=== PATIENT | female | born 2000 | race Two or more races ===

== ENCOUNTER 2024-06-01 20:38 | Observation (INO) ==
[2024-06-01 21:27] LABS: Albumin Globulin Ratio 1.2 (0.9-2); Albumin Level 4.3 gm/dl (3.4-5.0); BUN Creatinine Ratio 9.5 (10-20); Bilirubin,Total 1.1 mg/dl (0.2-1.0); Calcium 9.4 mg/dl (8.6-10.3); Creatinine Clr Calc Pharmacy 94.8 ml/min; Globulin 3.7 gm/dl (2.5-4.0); Potassium 3.5 mmol/L (3.5-5.1)
[2024-06-01 21:36] LABS: Basophils # (auto) 0.05 K/uL (0.00-0.20); Basophils % (auto) 0.3 %; Eosinophils # (auto) 0.04 K/uL (0.00-0.50); Eosinophils % (auto) 0.2 %; Hematocrit (blood only) 41.8 % (37.0-47.0); Hemoglobin 14.2 g/dl (12.0-16.0); Immature Granulocytes # (auto) 0.09 K/uL (0.01-0.20); Immature Granulocytes % (auto) 0.5 %; Lymphocytes # (auto) 2.15 K/uL (1.20-3.40); Lymphocytes % (auto) 13.1 %; Mean Corpuscular Hemoglobin 27.7 pg (25.0-34.0); Mean Corpuscular Volume 81.5 fL (80.0-100.0); Mean Platelet Volume 9.4 fL (9.4-12.4); Monocytes # (auto) 0.92 K/uL (0.11-0.59); Monocytes % (auto) 5.6 %; Neutrophils # (auto) 13.18 K/uL (1.40-6.50); Neutrophils % (auto) 80.3 %; Platelet Count 252 K/uL (130-400); RDW Coefficient of Variation 12.4 % (11.5-14.5); RDW Standard Deviation 36.6 fL (36.4-46.3); Red Blood Count 5.13 M/uL (4.20-5.40); White Blood Count 16.43 K/ul (4.8-10.8)
[2024-06-01 21:54] LABS: Adenovirus PCR Not Detected (NotDetected); Bordetella parapertussis PCR Not Detected (NotDetected); Bordetella pertussis PCR Not Detected (NotDetected); Chlamydia pneumoniae PCR Not Detected (NotDetected); Coronavirus 229E PCR Not Detected (NotDetected); Coronavirus CoV-2 (COVID19)PCR Not Detected (NotDetected); Coronavirus HKU1 PCR DETECTED (NotDetected); Coronavirus NL63 PCR Not Detected (NotDetected); Coronavirus OC43PCR Not Detected (NotDetected); Human Metapneumovirus PCR Not Detected (NotDetected); Influenza A PCR Not Detected (NotDetected); Influenza B PCR Not Detected (NotDetected); Mycoplasma pneumoniae PCR Not Detected (NotDetected); Parainfluenza Virus 1 PCR Not Detected (NotDetected); Parainfluenza Virus 2 PCR Not Detected (NotDetected); Parainfluenza Virus 3 PCR Not Detected (NotDetected); Parainfluenza Virus 4 PCR Not Detected (NotDetected); Respiratory Syncytial VirusPCR Not Detected (NotDetected); Rhinovirus/Enterovirus PCR Not Detected (NotDetected)
[2024-06-01] MEDS: ACETAMINOPHEN 1,000 MG/100 ML VIAL IV STA (23:08)
[2024-06-01] MEDS: SODIUM CHLORIDE 0.9% 1,000 ML IV ONE (23:08)
[2024-06-01] MEDS: KETOROLAC TROMETHAMINE 15 MG/ML VIAL IV STA (23:09)
[2024-06-01 23:23] LABS: Troponin I High Sensitivity 45.7 pg/ml (0-14)
[2024-06-01 23:25] LABS: D Dimer 1580 ug/L FEU (0-500)
[2024-06-01 23:44] LABS: INR 1.1 (0.9-1.1); Partial Thromboplastin Ratio 1.2; Partial Thromboplastin Time 33 Seconds (21-31); Prothrombin Time 12.2 Seconds (9.0-12.0)
[2024-06-01 23:50] LABS: Magnesium 1.8 mg/dl (1.7-2.4); Uric Acid 3.8 mg/dl (2.6-7.2)
[2024-06-01 23:51] LABS: Procalcitonin 1.74 ng/ml (0-0.5)
[2024-06-01] MEDS: OPTIRAY 320 125ml IV ONE (23:55)
[2024-06-02 00:06] LABS: C Reactive Protein 40.5 mg/dl (0-0.5)
[2024-06-02 00:17] LABS: Lyme Screen Rflx Confirmation Negative (Negative)
[2024-06-02] MEDS: COLCHICINE 0.6 MG TAB PO ONE (00:40)
--- NOTE | 2024-06-02 01:16 | History & Physical Report ---
Date of Service June 02, 2024 Assessment & Plan (1) Coronavirus infection, unspecified: (2) Fever: Plan: 23 y/o female with no PMH here due to fever, general aches, joint pain and rash found with coronavirus Patient with symptoms since , worsening over the weekend Recent travel to [facility] Rash on hand and feet with sore throat- Hand and mouth disease Biofire positive for Coronavirus HKU1 Chest CT: . No major pulmonary embolism. leukocytosis of 16.43 no left shift. ESR elevated 63, CRP 40.50 PT 12.2. PTT 33, INR 1.1. D-dimer elevated at 1580. Hyponatremia of 133. Troponin 45.7 -> pending repeat EKG: sinus tachycardia, no signs of pericarditis Procal 1.74. Blood cultured pending 125 ml IV plasmolyte Tylenol for fever s/p Colchicine 0.6 mg po given continue supportive measures Plan FEN: Normal diet Code status: Full code DNR/DNI DVT ppx: ambulation Dispo: med/surg History of Present Illness Primary Care Provider: [facility] Patient is a 23 y/o female with no PMH here due to fever and general malaise. Patient states symptoms started on with a sore throat. Over the Saturday she started to developed body aches that worsen over the weekend. She refers some runny nose as well. Body aches include headaches, neck and joint pain. she develop rash on her hands and feet. She recently visit family in [facility], she returned on the 17 of this month. She states that went to [facility], where they tested for Covid 19 which was negative. CXR was done as well, which she refers was negative for pneumonia. She was given Doxycycline, which she took only one dose. Denied any cough, ear aches, abdominal pain, nausea, vomiting or diarrhea.Denied any light sensitivities. Denied mosquitoes bites. ED course: Patient found with sinus tachycardia, no fever. Lab remarkable for leukocytosis of 16.43 no left shift. ESR elevated 63, CRP 40.50 PT 12.2. PTT 33, INR 1.1. D-dimer elevated at 1580. Hyponatremia of 133. hypophosphatemia 2.3. Magnesium 1.8. Troponin 45.7. Procal 1.74. Biofire positive for Coronavirus HKU1 PAtient received IV tylenol Colchicine and ketorolac. 1 L of NSS. Allergies Allergy/AdvReac Type Severity Reaction Status Date / Time Penicillins Allergy Rash Verified 06/02/24 00:40 Past Med/Surg History Problem List (Updated 06/02/24 @ 02:51 by Davis Tobar PA-C) Elevated troponin (Acute) Viral illness (Acute) Coronavirus infection (Acute) Myocarditis (Acute) Fever Coronavirus infection, unspecified Social History Smoking Status: Never smoker Second Hand Exposure: No; Do You Dip or Chew Tobacco: No; Tobacco Cessation Education Requested by Patient: No Hx Alcohol Use: Yes Hx Substance Use: No Preferred Language: Lithuanian Communication Ability: Effective [place] Former Machine Operator Required: No Beliefs That Will Affect Care: None Current Living Situation: Alone Other Information That Helps Us Care for You: No Feels Safe at Home: Yes Safety Concerns: Feels Safe At This Time Assistive Devices: None Review of Systems Review of Systems: as per HPI Physical Exam Constitutional: well developed, well nourished and + ill appearing; no acute distress Eyes: PERRL, conjunctivae normal, anicteric sclerae ENMT: Mouth: + oral mucosal abnormality (Small ulcers, erythemathous) Neck: trachea midline, no thyromegaly Respiratory: normal respiratory effort, lungs clear to auscultation Cardiovascular: RRR, no murmur, no edema Gastrointestinal (Abdomen): normal bowel sounds, soft, nontender, no hepatosplenomegaly Skin: Rash on hands and feet Neurologic: Negative Kernig sign, no neck stiffness, no Brudzinski sign: Results & Data Results & Data Vital Signs (Past 12 Hours) Vital Signs Temp Pulse Resp BP Pulse Ox O2 Del Method 06/02/24 01:06 102 H 06/02/24 01:03 106 H 20 06/02/24 01:00 99/73 L 06/02/24 00:30 107/76 06/02/24 00:30 108 H 16 107/76 98 Room Air 06/02/24 00:21 106 H 19 98 06/01/24 23:09 117 H 21 98 06/01/24 23:08 118/76 06/01/24 23:03 121 H 22 97 Room Air 06/01/24 21:33 123 H 21 98 06/01/24 21:21 126 H 25 H 96 06/01/24 21:16 126 H 06/01/24 20:42 36.4 C L 140 H 19 98/74 L 98 Room Air Code Status & VTE Plan VTE Prophylaxis Plan VTE Prophylaxis will be ordered: Yes Supervising Physician Co-Signing Physician Notes Attending addendum: I have physically seen this patient, have supervised the medical residents activities, and agree with the H&P unless as otherwise noted. Assessment and Plan: The patient is a 23-year-old female with no significant past medical history, who had recently traveled to [facility], and presents to the emergency department with fever, generalized malaise, headaches, neck pain, joint pain, rash on hands and feet. She was recently seen at [facility], where she was tested negative for COVID-19 and reportedly had a negative chest x-ray. She was given doxycycline, took 1 dose, she presents to the emergency department and admitted for further assessment #Presumptive viral myocarditis- Troponin 45.7, with BioFire concern positive for coronavirus HKU1 virus- The patient will be admitted to telemetry for serial cardiac enzymes, serial EKG's, cardiac rhythm monitoring and a 2-D echocardiogram with Dopplers. Will also add EBV, CMV, coxsackie and parvovirus To this point Lyme antibody testing negative Anaplasmosis and babesiosis antibodies negative, with peripheral smear negative CTA chest negative for PE or large pericardial effusion Start colchicine 0.6 mg p.o. twice daily and aspirin 81 mg p.o. twice daily IV fluids as noted Viral rash and arthralgias, consistent with syndrome Consult cardiology in the a.m. Resident Activity Tracking Resident Involvement: Resident Care Provided Care Provided: Adult Hospital Medicine
[2024-06-02 01:52] LABS: Phosphorus 2.3 mg/dl (2.5-4.9)
[2024-06-02] MEDS ORDERED: POTASSIUM PHOS 3 MMOL/1 ML INFUSION IV STA (02:15)
--- NOTE | 2024-06-02 02:40 | CT Scan Report ---
EXAM: CT angio chest PE protocol CLINICAL HISTORY: Fever, travel, elevated dimer, PE r/o. TECHNIQUE: Contiguous 3.[address] images of the chest were acquired with administration of intravenous contrast. Coronal and sagittal reconstructions were obtained.118 ml optiray 320 was administered for post contrast images. One of the following dose reduction techniques were utilized for this exam: Automated exposure control, adjustment of the mA and/or kV according to patient size, and use of iterative reconstruction COMPARISON: None. FINDINGS: Lungs: Lungs are clear with no evidence of consolidation, collapse, or focal lesions. Bibasilar likely gravity-dependent atelectasis. No pulmonary consolidation or collapse. No pleural effusion or pleural thickening. Mediastinum: No mediastinal mass or abnormal lymphadenopathy. Normal appearance of the thymus. Heart and Great Vessels: Borderline heart size. No pericardial effusion. Normal caliber and course of the thoracic aorta and other great vessels. No significant atherosclerosis or aneurysm. Normal enhancement of the great vessels post-contrast. Pulmonary Arteries: No evidence of pulmonary embolism. Normal size and course of the pulmonary arteries. Esophagus: Normal course and caliber. No masses or dilatation. Bones: No fractures or lytic/sclerotic lesions. Normal bone density and alignment. No evidence of rib fractures. Chest Wall: No masses or soft tissue abnormalities. Upper Abdomen: No abnormalities noted in the visualized upper abdominal organs. Thyroid: Normal size and morphology. No nodules or masses. IMPRESSION: 1. No major pulmonary embolism. 2. Mild gravity-dependent atelectasis. Electronically signed by Blake Bey 06-02-2024 02:40 AM
--- NOTE | 2024-06-02 02:51 | Emergency Department Note ---
History of Present Illness General Chief complaint: Flu Like Symptoms Stated complaint: FEVER, RED SPOTS ON HANDS, LEFT HAND PAIN Time Seen by Provider: 06/01/24 22:43 History of Present Illness Maximum Pain Intensity: 6 This is a 23-year-old female presenting to the emergency department for evaluation of bodyaches, rash, and general flulike symptoms. Patient is usually healthy and recently traveled back from [facility] about 10 days ago. She is a student at the [employer], and went to [employer] 2 days ago with symptoms. Evidently she had negative COVID-19 testing and normal chest x-ray. She was started on doxycycline, taking only 1 dose of the antibiotic. The patient continues to feel unwell and elected to come to the ER for evaluation. She does not have any significant family history of cardiopulmonary disease. She is not on control. She rates her discomfort a 6/10. She has not taken any Tylenol or Motrin today. She does not identify aggravating or alleviating factors. Allergies Allergy/AdvReac Type Severity Reaction Status Date / Time Penicillins Allergy Rash Verified 06/02/24 00:40 Past Med/Surg History Problem List (Updated 06/02/24 @ 02:51 by Davis Tobar PA-C) Elevated troponin (Acute) Viral illness (Acute) Coronavirus infection (Acute) Myocarditis (Acute) Fever Coronavirus infection, unspecified Social History Smoking Status: Never smoker Second Hand Exposure: No; Do You Dip or Chew Tobacco: No; Tobacco Cessation Education Requested by Patient: No Hx Alcohol Use: Yes Hx Substance Use: No Preferred Language: Yemeni Communication Ability: Effective Book Binder Required: No Beliefs That Will Affect Care: None Current Living Situation: Alone Other Information That Helps Us Care for You: No Feels Safe at Home: Yes Safety Concerns: Feels Safe At This Time Assistive Devices: None Review of Systems A total of 10 systems reviewed and were otherwise negative Physical Exam Vital Signs Vital Signs - 24 hr 06/01/24 20:42 06/01/24 21:16 06/01/24 21:21 Temperature 36.4 C L Temperature Source Temporal Artery Scan Pulse Rate 140 H 126 H 126 H Pulse Rate from SpO2 Sensor 126 H Pulse Rhythm Regular Pulse Strength Normal Respiratory Rate 19 25 H Respiratory Effort / Characteristics Non-Labored Spontaneous Respiratory Depth Normal Respiratory Pattern Regular Blood Pressure 98/74 L Blood Pressure Mean 82 Blood Pressure Position Sitting Pulse Oximetry 98 96 Oxygen Delivery Method Room Air Sepsis Recent Fever Within 48 Hours No Sepsis New/Unexplained Change in Mental Status N/A Sepsis Action Taken by Nursing No Action Required 06/01/24 21:33 06/01/24 23:03 06/01/24 23:08 Temperature Temperature Source Pulse Rate 123 H 121 H Pulse Rate from SpO2 Sensor 123 H 121 H Pulse Rhythm Pulse Strength Respiratory Rate 21 22 Respiratory Effort / Characteristics Respiratory Depth Respiratory Pattern Blood Pressure 118/76 Blood Pressure Mean 90 Blood Pressure Position Pulse Oximetry 98 97 Oxygen Delivery Method Room Air Sepsis Recent Fever Within 48 Hours Sepsis New/Unexplained Change in Mental Status Sepsis Action Taken by Nursing 06/01/24 23:09 06/02/24 00:21 06/02/24 00:30 Temperature Temperature Source Pulse Rate 117 H 106 H 108 H Pulse Rate from SpO2 Sensor 117 H 107 H 107 H Pulse Rhythm Pulse Strength Respiratory Rate 21 19 16 Respiratory Effort / Characteristics Respiratory Depth Respiratory Pattern Blood Pressure 107/76 Blood Pressure Mean 86 Blood Pressure Position Pulse Oximetry 98 98 98 Oxygen Delivery Method Room Air Sepsis Recent Fever Within 48 Hours Sepsis New/Unexplained Change in Mental Status Sepsis Action Taken by Nursing 06/02/24 00:30 Temperature Temperature Source Pulse Rate Pulse Rate from SpO2 Sensor Pulse Rhythm Pulse Strength Respiratory Rate Respiratory Effort / Characteristics Respiratory Depth Respiratory Pattern Blood Pressure 107/76 Blood Pressure Mean 90 Blood Pressure Position Pulse Oximetry Oxygen Delivery Method Sepsis Recent Fever Within 48 Hours Sepsis New/Unexplained Change in Mental Status Sepsis Action Taken by Nursing VITALS: Vitals are noted on the nurse's note and reviewed by myself. Vital signs with tachycardia GENERAL: Well-developed, well-nourished, female, who appears mildly ill but not toxic. HEAD: Normocephalic atraumatic. EARS: External ear normal. External auditory canals clear, tympanic membranes pearly paige without erythema or effusion bilaterally. EYES: Pupils equal round and reactive to light and accommodation. Conjunctivae without injection, sclerae without icterus. Extraocular movements intact. NOSE: Patent, turbinates without inflammation or discharge. MOUTH: Mucous membranes moist. Tonsils are not enlarged. Pharynx without erythema, blood, or exudate. Uvula midline. Airway patent. Shallow ulcerations noted NECK: Supple without nuchal rigidity. No lymphadenopathy. No thyromegaly. Cervical spine is nontender. HEART: Tachycardic rate with regular rhythm. No murmur gallop or rub. LUNGS: Clear to auscultation bilaterally without wheezes, rales or rhonchi. No retractions or accessory muscle use. ABDOMEN: Positive normal bowel sounds x 4. Soft, nontender, without masses or organomegaly. No guarding or rebound tenderness. MUSCULOSKELETAL: No muscle atrophy, erythema, or edema noted. Full range of motion in all extremities. NEURO: Patient was alert and oriented to person place and time. CN II through XII grossly intact. GCS 15. SKIN: The skin was with nonspecific rash noted on the palms and soles, but not elsewhere. Course Administered Medications Discontinued Medications Colchicine (Colchicine 0.6 Mg Tab) 0.6 mg PO NOW ONE Stop: 06/01/24 23:40 Last Admin: 06/02/24 00:40 Dose: 0.6 mg Documented By: JAYLA Acetaminophen (Ofirmev) 1,000 mg in 100 mls @ 400 mls/hr IV NOW STA Stop: 06/01/24 23:04 Last Infusion: 06/01/24 23:27 Dose: Infused Documented By: Admin: 06/01/24 23:08 Dose: 400 mls/hr Documented By: JAYLA Sodium Chloride (Nss) 1,000 mls @ 999 mls/hr IV .Q1H1M ONE Stop: 06/01/24 23:50 Last Infusion: 06/02/24 00:37 Dose: Infused Documented By: Admin: 06/01/24 23:08 Dose: 999 mls/hr Documented By: JAYLA Ioversol (Optiray 320 125ml) 125 ml IV ONCE ONE Stop: 06/01/24 23:56 Last Admin: 06/01/24 23:55 Dose: 118 ml Documented By: DONIS Ketorolac Tromethamine (Ketorolac Tromethamine 15 Mg/Ml Vial) 15 mg IV NOW STA Stop: 06/01/24 22:51 Last Admin: 06/01/24 23:09 Dose: 15 mg Documented By: JAYLA Medical Decision Making Differential Diagnosis Differential diagnosis includes, but is not limited to: Myocardial infarction, dysrhythmia, pericarditis, pneumothorax, aortic aneurysm/dissection, DVT/PE, anxiety, GERD, PUD, electrolyte imbalance, thyroid disorder, pneumonia, bronchitis, pancreatitis, and others Laboratory Data 06/01/24 20:50 06/01/24 20:50 Lab Results 06/01/24 Range/Units 20:50 WBC 16.43 H (4.8-10.8) K/ul RBC 5.13 (4.20-5.40) M/uL Hgb 14.2 (12.0-16.0) g/dl Hct 41.8 (37.0-47.0) % MCV 81.5 (80.0-100.0) fL MCH 27.7 (25.0-34.0) pg MCHC 34.0 (32.0-36.0) g/dL RDW Std Deviation 36.6 (36.4-46.3) fL RDW Coeff of Kayla 12.4 (11.5-14.5) % Plt Count 252 (130-400) K/uL MPV 9.4 (9.4-12.4) fL Immature Gran % (Auto) 0.5 % Neut % (Auto) 80.3 % Lymph % (Auto) 13.1 % Falls % (Auto) 5.6 % Eos % (Auto) 0.2 % Baso % (Auto) 0.3 % Neut # (Auto) 13.18 H (1.40-6.50) K/uL Lymph # (Auto) 2.15 (1.20-3.40) K/uL Falls # (Auto) 0.92 H (0.11-0.59) K/uL Eos # (Auto) 0.04 (0.00-0.50) K/uL Baso # (Auto) 0.05 (0.00-0.20) K/uL Immature Gran # (Auto) 0.09 (0.01-0.20) K/uL ESR 63 H (0-20) mm/hr PT 12.2 H (9.0-12.0) Seconds INR 1.1 (0.9-1.1) APTT 33 H (21-31) Seconds PTT Ratio 1.2 D-Dimer 1580 H* (0-500) ug/L FEU Sodium 133 L (136-145) mmol/L Potassium 3.5 (3.5-5.1) mmol/L Chloride 98 (98-107) mmol/L Carbon Dioxide 26 (21-32) mmol/L Anion Gap 9 (3-11) BUN 8 (6-23) mg/dl Creatinine 0.84 (0.6-1.2) mg/dl Est Cr Clr Drug Dosing 94.8 ml/min eGFR 99.45 BUN/Creatinine Ratio 9.5 L (10-20) Glucose 100 H (70-99(Fasting)) mg/dl Uric Acid 3.8 (2.6-7.2) mg/dl Calcium 9.4 (8.6-10.3) mg/dl Phosphorus 2.3 L (2.5-4.9) mg/dl Magnesium 1.8 (1.7-2.4) mg/dl Total Bilirubin 1.1 H (0.2-1.0) mg/dl AST 20 (13-39) U/L ALT 12 (7-52) U/L Alkaline Phosphatase 74 (34-104) U/L Troponin I High Sens 45.7 H (0-14) pg/ml C-Reactive Protein 40.50 H (0-0.5) mg/dl Total Protein 8.0 (6.0-8.3) gm/dl Albumin 4.3 (3.4-5.0) gm/dl Globulin 3.7 (2.5-4.0) gm/dl Albumin/Globulin Ratio 1.2 (0.9-2) Procalcitonin 1.74 H (0-0.5) ng/ml Adenovirus (PCR) Not Detected (NotDetected) Anaplasma Smear See Comment Babesia Smear See Comment B. pertussis DNA (PCR) Not Detected (NotDetected) B.parapertussis DNA PCR Not Detected (NotDetected) Lyme Disease Screen Negative (Negative) C. pneumoniae DNA (PCR) Not Detected (NotDetected) Coronavirus OC43 (PCR) Not Detected (NotDetected) Coronavirus HKU1 (PCR) DETECTED A (NotDetected) Coronavirus 229E (PCR) Not Detected (NotDetected) SARS-CoV-2 (PCR) Not Detected (NotDetected) Coronavirus NL63 (PCR) Not Detected (NotDetected) Human Metapneumovir PCR Not Detected (NotDetected) Influenza Type A (PCR) Not Detected (NotDetected) Influenza Type B (PCR) Not Detected (NotDetected) M. pneumoniae (PCR) Not Detected (NotDetected) Parainfluenza 1 (PCR) Not Detected (NotDetected) Parainfluenza 2 (PCR) Not Detected (NotDetected) Parainfluenza 3 (PCR) Not Detected (NotDetected) Parainfluenza 4 (PCR) Not Detected (NotDetected) RSV (PCR) Not Detected (NotDetected) Entero/Rhino (PCR) Not Detected (NotDetected) Imaging Data Radiologist's Impression: Chest CTA 06/01/24 23:25 EXAM: CT angio chest PE protocol CLINICAL HISTORY: Fever, travel, elevated dimer, PE r/o. TECHNIQUE: Contiguous 3.[address] images of the chest were acquired with administration of intravenous contrast. Coronal and sagittal reconstructions were obtained.118 ml optiray 320 was administered for post contrast images. One of the following dose reduction techniques were utilized for this exam: Automated exposure control, adjustment of the mA and/or kV according to patient size, and use of iterative reconstruction COMPARISON: None. FINDINGS: Lungs: Lungs are clear with no evidence of consolidation, collapse, or focal lesions. Bibasilar likely gravity-dependent atelectasis. No pulmonary consolidation or collapse. No pleural effusion or pleural thickening. Mediastinum: No mediastinal mass or abnormal lymphadenopathy. Normal appearance of the thymus. Heart and Great Vessels: Borderline heart size. No pericardial effusion. Normal caliber and course of the thoracic aorta and other great vessels. No significant atherosclerosis or aneurysm. Normal enhancement of the great vessels post-contrast. Pulmonary Arteries: No evidence of pulmonary embolism. Normal size and course of the pulmonary arteries. Esophagus: Normal course and caliber. No masses or dilatation. Bones: No fractures or lytic/sclerotic lesions. Normal bone density and alignment. No evidence of rib fractures. Chest Wall: No masses or soft tissue abnormalities. Upper Abdomen: No abnormalities noted in the visualized upper abdominal organs. Thyroid: Normal size and morphology. No nodules or masses. IMPRESSION: 1. No major pulmonary embolism. 2. Mild gravity-dependent atelectasis. Electronically signed by Blake Bey 06-02-2024 02:40 AM ECG Data Attestation: I personally reviewed and interpreted this ECG as follows: Indication: + tachycardia Additional Comments: Sinus tachycardia at 112 bpm Nonspecific T wave abnormality No significant ectopy No previous for comparison MDM Narrative Physical exam and history were performed. Nursing notes, EMR, and Medication List were personally reviewed. No social concerns were identified as barriers to patients care. Patient appears to have flulike symptoms bringing her to the ER. On arrival through triage she is quite tachycardic. On arrival through triage she is quite tachycardic in the 140s. She is afebrile. She does not have clinical evidence of meningitis or encephalitis. IV access was established and labs were obtained. Bio fire was performed. Patient's blood work is as above and was reviewed. She does have an elevated white blood cell count of 16,000. She does not have significant anemia or gross electrolyte imbalance. Transaminases are not diagnostic. With her elevated white count and tachycardia additional blood work and testing was performed. The patient was given IV saline, IV Toradol, and IV Tylenol. EKG is sinus tachycardia. Her D-dimer is elevated over 1500, and troponin is elevated at 45. Inflammatory marker CRP is significantly elevated at 40, and sed rate is 63. Procalcitonin is 1.74. BioFire did return POSITIVE for Coronavirus HKU1. CT scan was performed to rule out pulmonary embolism, and this was reviewed by myself and radiology showing no significant acute process. Escalation of care is felt to be necessary for this patient. Her vital signs did improve with fluids and medication here. Clinically she has obkc-mrlf-dmm-mouth disease with her rash, and seems to have myocarditis based on labs. Case was discussed with my attending, as well as the on-call hospitalist team. Patient will be given an additional dose of colchicine. Please see the hospitalist dictation for further patient course, plan, and disposition. The chart was completed utilizing [employer] Speech Voice Recognition Software. Grammatical errors, random word insertions, pronoun errors, and incomplete sentences are an occasional consequence of this system due to software limitations, ambient noise, and hardware issues. Any formal questions or concerns about the content, text, or information contained within the body of this dictation should be directly addressed to the provider for clarification. Impression & Plan Myocarditis, Coronavirus infection, Viral illness, Elevated troponin Discharge Plan Visit Data Chief Complaint: Flu Like Symptoms Stated Complaint: FEVER, RED SPOTS ON HANDS, LEFT HAND PAIN ED Provider: Hebert Santos ED Midlevel Provider: Davis Tobar Discharge Problem: Myocarditis, Coronavirus infection, Viral illness, Elevated troponin Discharge Instructions Interventions: ED Discharge Assessment Last Done: 06/02/24 01:46
[2024-06-02] MEDS: POTASSIUM PHOSPHATE 15 MMOL in SODIUM CHLORIDE 0.9% 250 ML IV ONE (02:53)
--- NOTE | 2024-06-02 04:00 | Billing Data ---
Date of Service June 02, 2024 Coding Level of Care Code 38421 INT INP/OBS CARE
[2024-06-02] MEDS ORDERED: ONDANSETRON INJ 2 MG/ML 2 ML VIAL IV PRN (06:21)
[2024-06-02] MEDS: ACETAMINOPHEN 325 MG TAB PO STA (06:44)
[2024-06-02] MEDS: PLASMA-LYTE A 1,000 ML IV SCH (07:56)
[2024-06-02] MEDS: ASPIRIN 81 MG ECTAB PO SCH (09:18)
[2024-06-02] MEDS: COLCHICINE 0.6 MG TAB PO SCH (09:18)
--- NOTE | 2024-06-02 11:40 | XCELERA ---
[id number] [id number]
[2024-06-02] MEDS: ACETAMINOPHEN 500 MG TAB PO PRN (11:43)
--- NOTE | 2024-06-02 12:59 | Electrocardiogram Report ---
Test Reason : Blood Pressure : */* mmHG Vent. Rate : 112 BPM Atrial Rate : 112 BPM P-R Int : 134 ms QRS Dur : 82 ms QT Int : 306 ms P-R-T Axes : 44 35 9 degrees QTcB Int : 417 ms Sinus tachycardia Nonspecific T wave abnormality Abnormal ECG No previous ECGs available Confirmed by Jonas Wick ([id number]) on 06/02/2024 12:56:28 PM Referred By: REFERRED SELF Confirmed By: Jonas Wick
--- NOTE | 2024-06-02 14:14 | Hospitalist Progress Note ---
Date of Service June 02, 2024 Assessment & Plan (1) Coronavirus infection, unspecified: (2) Coxsackie viral disease: (3) Fever: Plan Ophelia Garcia is a 23 year-old female without a known past medical history who presented for fever, generalized body aches, sore throat, bilateral hand and foot rash who was admitted for further workup of possible viral complications. #Coronavirus Infection #Coxsackievirus Infection - IV fluids: Plasmalyte 125 ml/hr 1 bag - Acetaminophen PRN - Blood cultures: Pending - EBV, CMV, Parvo: Pending Respiratory BioFire: +Coronavirus (HKU1) CT Angiography: Unremarkable Echocardiogram: Unremarkable High Sensitivity Troponin: Peaked 45; downtrending D-Dimer: 1580 CRP: 40; ESR: 60; Procalcitonin: 1.74 S/P Colchicine and Ketoralac FEN: Normal diet Code status: Full code DNR/DNI DVT ppx: ambulation Dispo: med/surg Admission and Anticipated Discharge Date Admission Date: June 02, 2024 Supervising Physician Co-Signing Physician Notes I personally examined the patient and verified all ortiz points of history and exam, discussed case, and agree with decision making with Dr Burton and Olu Chapman MS4 feeling better than yesterday but L arm wrist elbow swollen more than elsewhere, feels stiff and achy all over. answered all questions to the best of my ability and to her satisfaction vitals noted nad heent nc at mmm L wrist small but noticable effusion, L elbow and shoulder feel stiff with ROM c/w small effusion although i cannot actually palpate the fluid distinctly. hands with small papular lesions nontender non fluctuant. lungs clear. fatigued but nontoxic appearing. mental status fully intact viral illness - suspect coxsackie given sore throat, fever/aches and palmar rash. follow into tomorrow given leukocytosis and marked CRP elevation to ensure nothing else concomitant smoldering. suspect joint pain due to immune mediated reaction in response to virus but obviously will want to follow as outpt to resolution to ensure no actual autoimmune process. troponin likely mild demand from fever/dehydration/tachycardia - given lack of characteristic sx, no EKG changes, echo normal do not suspect pericarditis/myocarditis at all otherwise as above Grabiel Jacinto was seen at bedside this morning with her aunt who is a nurse on the phone. She endorsed that her sore throat feels much better than it did on Saturday/Saturday. She noted that the rash on her hands has faded and is non- tender. She mentioned tenderness and mild swelling of her joints. She indicated that her left hand is more swollen compared to the right hand. She denies chest pain, shortness of breath, fever, and GI distress. We discussed updates regarding her imaging, labs, and next steps. Questions were answered to the content of both Ophelia and her aunt. Otherwise, she has no further questions, comments, or concerns. Review of Systems Review of Systems: Per HPI Physical Exam Physical Exam: Constitutional: Lying comfortably in bed. In no apparent distress. No pain lying supine. No pain sitting upward and leaning forward. HEENT: Erythematous pharynx Cardiovascular: Tachycardic. S1 and S2 normal. No rubs, murmurs, or gallops. Respiratory: Clear to auscultation bilaterally without wheezes, crackles, or rhonchi. No accessory respiratory muscle use. Rate and depth appropriate for situation. Conversational without shortness of breath. Extremities: Small, circular, sparse, fading dark lesions on the hands and feet bilaterally Results & Data Results & Data Vital Signs (Past 12 Hours) Vital Signs Pulse Pulse Resp BP BP Pulse Ox O2 Del Method 06/02/24 10:03 112 H 13 98 06/02/24 10:00 126/80 06/02/24 09:47 123/88 06/02/24 09:36 114 H 17 06/02/24 08:03 109 H 23 100 06/02/24 08:00 121/84 06/02/24 08:00 121/84 06/02/24 07:57 105 H 24 97 06/02/24 07:00 115/74 06/02/24 07:00 107 H 20 115/74 97 Room Air 06/02/24 06:53 100 H 06/02/24 06:45 106 H 18 117/81 96 Room Air 06/02/24 06:00 96 H 20 110/75 98 Room Air 06/02/24 05:00 100 H 20 110/73 97 Room Air 06/02/24 04:15 97 H 20 97 Room Air 06/02/24 04:00 94 H 16 112/66 97 Room Air 06/02/24 03:36 92 H 18 108/70 97 Room Air 06/02/24 03:06 94 H 16 102/68 98 Room Air 06/02/24 02:27 102 H 15 99/73 L 98 Room Air 06/02/24 02:21 106 H 17 95/65 L 99 Room Air 06/02/24 02:00 101 H 20 95/65 L 97
[2024-06-02] MEDS: IBUPROFEN 200 MG TAB PO PRN (17:06)
[2024-06-02 19:57] VITALS: O2SAT 99
[2024-06-03 07:06] VITALS: BP 103/68; PULSE 80; RESP 14; TEMP 97.2
[2024-06-03 07:10] LABS: Hematocrit (blood only) 37.4 % (37.0-47.0); Hemoglobin 12.5 g/dl (12.0-16.0); Mean Corpuscular Hemoglobin 27.4 pg (25.0-34.0); Mean Corpuscular Hgb Conc 33.4 g/dL (32.0-36.0); Mean Corpuscular Volume 81.8 fL (80.0-100.0); Mean Platelet Volume 9.4 fL (9.4-12.4); Platelet Count 229 K/uL (130-400); RDW Coefficient of Variation 12.7 % (11.5-14.5); RDW Standard Deviation 38.2 fL (36.4-46.3); Red Blood Count 4.57 M/uL (4.20-5.40); White Blood Count 9.18 K/ul (4.8-10.8)
[2024-06-03 07:41] LABS: Prothrombin Time 10.4 Seconds (9.0-12.0)
[2024-06-03 07:45] LABS: Albumin Level 3.6 gm/dl (3.4-5.0); BUN Creatinine Ratio 14.8 (10-20); Bilirubin,Total 0.5 mg/dl (0.2-1.0); C Reactive Protein 22.4 mg/dl (0-0.5); Calcium 8.8 mg/dl (8.6-10.3); Creatinine Clr Calc Pharmacy 147.5 ml/min; Globulin 3.5 gm/dl (2.5-4.0); Total Protein 7.1 gm/dl (6.0-8.3)
[2024-06-03 07:46] LABS: Basophils # (auto) 0.04 K/uL (0.00-0.20); Basophils % (auto) 0.4 %; Eosinophils # (auto) 0.12 K/uL (0.00-0.50); Eosinophils % (auto) 1.3 %; Immature Granulocytes # (auto) 0.04 K/uL (0.01-0.20); Immature Granulocytes % (auto) 0.4 %; Lymphocytes # (auto) 2.76 K/uL (1.20-3.40); Lymphocytes % (auto) 30.1 %; Monocytes # (auto) 0.87 K/uL (0.11-0.59); Monocytes % (auto) 9.5 %; Neutrophils # (auto) 5.35 K/uL (1.40-6.50); Neutrophils % (auto) 58.3 %; RBC Morphology Unremarkable
--- NOTE | 2024-06-03 10:56 | Discharge Summary ---
Date of Service June 03, 2024 Admission HPI Per Admitting Provider Patient is a 23 y/o female with no PMH here due to fever and general malaise. Patient states symptoms started on with a sore throat. Over the Saturday she started to developed body aches that worsen over the weekend. She refers some runny nose as well. Body aches include headaches, neck and joint pain. she develop rash on her hands and feet. She recently visit family in [facility], she returned on the 17 of this month. She states that went to [facility], where they tested for Covid 19 which was negative. CXR was done as well, which she refers was negative for pneumonia. She was given Doxycycline, which she took only one dose. Denied any cough, ear aches, abdominal pain, nausea, vomiting or diarrhea.Denied any light sensitivities. Denied mosquitoes bites. ED course: Patient found with sinus tachycardia, no fever. Lab remarkable for leukocytosis of 16.43 no left shift. ESR elevated 63, CRP 40.50 PT 12.2. PTT 33, INR 1.1. D-dimer elevated at 1580. Hyponatremia of 133. hypophosphatemia 2.3. Magnesium 1.8. Troponin 45.7. Procal 1.74. Biofire positive for Coronavirus HKU1 Patient received IV tylenol Colchicine and ketorolac. 1 L of NSS. Admission Exam (Per Admitting) Constitutional well developed, well nourished and + ill appearing; no acute distress Eyes PERRL, conjunctivae normal, anicteric sclerae ENMT Mouth: + oral mucosal abnormality (Small ulcers, erythemathous) Neck trachea midline, no thyromegaly Respiratory normal respiratory effort, lungs clear to auscultation Cardiovascular RRR, no murmur, no edema Gastrointestinal (Abdomen) normal bowel sounds, soft, nontender, no hepatosplenomegaly Discharge Data Consultations 06/02/24 00:07 ED Decision to Admit Stat Hospital Course (1) Coronavirus infection, unspecified: (2) Coxsackie viral disease: (3) Fever: Shonda Garcia is a 23 year-old female without a known past medical history who presented for fever, generalized body aches, sore throat, bilateral hand and foot rash who was admitted for further workup of possible viral complications. #Coronavirus Infection #Coxsackievirus Infection - Acetaminophen and Ibuprofen PRN - Joint pain, sore throat, and body aches lessening; rash lightening on the extremities; sore throat lessening - Continue acetaminophen and ibuprofen (as instructed) on discharge for above criteria - Continue home meds on discharge - Consider outpatient rheumatologic testing if muscle aches/joint pains remained unresolved for >3 months; follow-up with primary care EBV, CMV, Parvo: Pending S/P IV fluids: Plasmalyte 125 ml/hr 1 bag Blood cultures: No growth Respiratory BioFire: +Coronavirus (HKU1) CT Angiography: Unremarkable Echocardiogram: Unremarkable High Sensitivity Troponin: Peaked 45; downtrending D-Dimer: 1580 CRP: 40; ESR: 60; Procalcitonin: 1.74 S/P Colchicine and Ketoralac Doxycycline stopped Code status: Full code Dispo: home Supervising Physician Co-Signing Physician Notes I personally examined the patient and verified all ortiz points of history and exam, discussed case, and agree with decision making with Dr Burton and Olu Chapman MS4 Feeling better overall. Left wrist still more or less the same, but elbow and shoulder feel better. Overall body aches feel better. vitals noted nad heent nc at mmm L wrist small but noticeable effusion, About the same as yesterday. Left elbow and shoulder feels less stiff and have a more easy range of motion and patient feels like they are moving easier as well. viral illness - suspect coxsackie given sore throat, fever/aches and palmar rash. Leukocytosis improved, CRP dropped significantly, vital stableoverall stable for home and no evidence of bacterial illness. suspect joint pain due to immune mediated reaction in response to virus but obviously will want to follow as outpt to resolution to ensure no actual autoimmune process. will be following with Dr. Burton And we discussed that it may take a month or so for the symptoms to resolve and in the meantime utilization of Tylenol and ibuprofen fairly liberally for 4-6 weeks would be quite reasonable. We also discussed that past that point if she was still having a lot of joint pain and swelling it would be very worthwhile to investigate from a rheumatologic standpoint. Again, however, I doubt this will be the case. troponin likely mild demand from fever/dehydration/tachycardia - given lack of characteristic sx, no EKG changes, echo normal do not suspect pericarditis/myocarditis at all otherwise as above
--- NOTE | 2024-06-03 15:57 | Billing Data ---
Date of Service June 03, 2024 Coding Level of Care Code 44574 IN/OBS DISCH 30 MIN/LESS
== END 2024-06-03 11:26 | disposition home or self-care (01) ==
LOC: EDINP 20:38 → ED 20:38 → SUATTDRO 06-02 00:55 → 3E 06-02 14:51